=== PATIENT | male | born 1960 | race Caucasian/White ===

== ENCOUNTER → 2016-05-25 | Outpatient (CLI) | payer BC, MEDICARE, OTHER ==
[~2016-05-25] VITALS: Ht 177.8 cm; Wt 77.6 kg
== END ==
LOC: OPSV 08:59
DX: G35 Multiple sclerosis (principal)
CPT/HCPCS: 96365; J2323; J7050

== ENCOUNTER → 2016-06-12 | Outpatient (CLI) | payer BC, MEDICARE | LOC: LAB 11:24 | DX: Z12.5 Encounter for screening for malignant neoplasm of prostate (principal); R35.0 Frequency of micturition | CPT/HCPCS: 36415; 81001; 84153; 87077; 87086; 87186; G0103 ==

== ENCOUNTER → 2016-06-26 | Outpatient (CLI) | payer BC, MEDICARE, OTHER ==
[~2016-06-26] VITALS: Ht 177.8 cm; Wt 77.6 kg
== END ==
LOC: OPSV 06-22 09:00
DX: G35 Multiple sclerosis (principal)
CPT/HCPCS: 96365; J2323; J7050

== ENCOUNTER → 2016-07-24 | Outpatient (CLI) | payer BC, MEDICARE, OTHER ==
[~2016-07-24] VITALS: Ht 177.8 cm; Wt 78.0 kg
== END ==
LOC: OPSV 09:55
DX: G35 Multiple sclerosis (principal)
CPT/HCPCS: 96365; J2323; J7050

== ENCOUNTER → 2016-08-21 | Outpatient (CLI) | payer BC, MEDICARE, OTHER ==
[2016-08-21 11:03] LABS: HEMOGLOBIN 10.8 gm/dl (14.0-17.5); RED BLOOD COUNT 5.19 M/UL (4.20-5.50); WHITE BLOOD COUNT 8.6 K/UL (4.5-11.0)
== END ==
LOC: OPSV 09:57
PROVIDERS: Urology
DX: G35 Multiple sclerosis (principal); I25.10 Atherosclerotic heart disease of native coronary artery without angina pectoris; E78.5 Hyperlipidemia, unspecified; R31.29 Other microscopic hematuria
CPT/HCPCS: 36415; 80061; 80076; 82565; 85025; 96365; J2323; J7050

== ENCOUNTER → 2016-08-28 | Outpatient (CLI) | payer BC, MEDICARE | LOC: MRI 12:27 | DX: G35 Multiple sclerosis (principal); M47.812 Spondylosis without myelopathy or radiculopathy, cervical region | CPT/HCPCS: 70553; 72156; A9577 ==

== ENCOUNTER → 2020-07-12 | Outpatient (CLI) | payer BC, MEDICARE ==
[~2020-07-12] MED LIST: AMPYRA10 MG PO; ASPIR-LOW81 MG PO; CIPRO500 MG PO; CYMBALTA60 MG PO; ECOTRIN81 MG PO; ELIQUIS 2.5 MG2.5 MG PO; LINZESS290 MCG PO; LIORESAL TAB 1010 MG PO; LIPITOR TAB 2020 MG PO; LOPRESSOR 25 MG25 MG PO; LORTAB 7.5-3251 EACH PO; MYRBETRIQ50 MG PO; NATALIZUMAB IV; NIACIN ER500 MG PO; NITROGLYCERIN0.4 MG SL; RANEXA1000 MG PO; RANEXA500 MG PO; SENNA8.6 MG PO; SERTRALINE HCL100 MG PO; TOPROL XL25 MG PO; TYLENOL W/CODEIN1 E1 PO; VITAMIN C 500500 MG PO; VITAMIN D35000 UNI1 PO; ZANTAC150 MG PO; ZOCOR20 MG PO; ZOLOFT100 MG PO
== END ==
LOC: RAD 16:51
DX: M25.561 Pain in right knee (principal); M25.571 Pain in right ankle and joints of right foot
CPT/HCPCS: 73562; 73610; 73630

== ENCOUNTER → 2020-10-07 | Outpatient (CLI) | payer BC, MEDICARE | LOC: KOH-I 12:00 | DX: M25.551 Pain in right hip (principal); M25.571 Pain in right ankle and joints of right foot; M19.071 Primary osteoarthritis, right ankle and foot | CPT/HCPCS: 72192; 73700 ==

== ENCOUNTER 2020-11-20 12:59 | Emergency (ER) | payer BC, MEDICARE ==
[2020-11-20 14:19] LABS: HEMOGLOBIN 7.2 gm/dl (14.0-17.5); RED BLOOD COUNT 3.72 M/UL (4.20-5.50); WHITE BLOOD COUNT 6.1 K/UL (4.5-11.0)
== END 2020-11-20 18:16 | disposition home or self-care (01) ==
LOC: ER1 12:59
PROVIDERS: Family Medicine
DX: Z23 Encounter for immunization (principal); U07.1 COVID-19; E78.5 Hyperlipidemia, unspecified; K21.9 Gastro-esophageal reflux disease without esophagitis; I25.10 Atherosclerotic heart disease of native coronary artery without angina pectoris; Z95.1 Presence of aortocoronary bypass graft; Z93.3 Colostomy status
CPT/HCPCS: 71045; 80053; 83615; 85025; 99285; M0243

== ENCOUNTER → 2021-01-06 | Outpatient (CLI) | payer BC, MEDICARE ==
[2021-01-06 12:51] LABS: RED BLOOD COUNT 4.04 M/UL (4.20-5.50)
[2021-01-06 13:14] LABS: BUN/CREATININE RATIO 19 (0-10)
[2021-01-06 14:00] LABS: HEMOGLOBIN 6.8 gm/dl (14.0-17.5)
== END ==
LOC: LAB 10:59 → KOH-I 10:59
PROVIDERS: Psychiatry & Neurology Neurology
DX: G35 Multiple sclerosis (principal); M54.16 Radiculopathy, lumbar region; R53.83 Other fatigue; M21.371 Foot drop, right foot; M21.372 Foot drop, left foot; M79.89 Other specified soft tissue disorders; F43.23 Adjustment disorder with mixed anxiety and depressed mood; S89.92XA Unspecified injury of left lower leg, initial encounter; N13.30 Unspecified hydronephrosis; M51.17 Intervertebral disc disorders with radiculopathy, lumbosacral region; M25.78 Osteophyte, vertebrae
CPT/HCPCS: 36415; 72148; 80053; 82607; 82746; 85025

== ENCOUNTER 2021-01-19 11:28 | Outpatient (CLI) | payer BC, MEDICARE ==
[2021-01-19 12:25] LABS: HEMOGLOBIN 6.9 gm/dl (14.0-17.5)
[2021-01-23] MEDS ORDERED: LINZESS72 MCG PO (07:46)
[2021-01-23] MEDS ORDERED: PROTONIX40 MG PO ×2 (07:49→09:19)
[2021-01-23] MEDS ORDERED: VITAMIN D31250 MCG PO (07:57)
== END 2021-01-19 19:23 | disposition home or self-care (01) ==
LOC: OPSV 11:28 → M/S 17:00 → OPSV 19:23
PROVIDERS: Nurse Practitioner Family
DX: D64.9 Anemia, unspecified (principal)
CPT/HCPCS: 36415; 36430; 85014; 85018; 86850; 86900; 86901; 86920; J7050; P9016

== ENCOUNTER → 2021-01-23 | Day surgery (SDC) | payer BC, MEDICARE ==
[~2021-01-23] MED LIST changes: +LINZESS72 MCG PO; +PROTONIX40 MG PO; +VITAMIN D31250 MCG PO
== END | disposition home or self-care (01) ==
LOC: OR 07:00
DX: K31.9 Disease of stomach and duodenum, unspecified (principal); K29.70 Gastritis, unspecified, without bleeding; D64.9 Anemia, unspecified; K64.4 Residual hemorrhoidal skin tags; I25.10 Atherosclerotic heart disease of native coronary artery without angina pectoris; N40.0 Benign prostatic hyperplasia without lower urinary tract symptoms; E78.5 Hyperlipidemia, unspecified; I73.9 Peripheral vascular disease, unspecified; G35 Multiple sclerosis; K21.9 Gastro-esophageal reflux disease without esophagitis; Z86.010 Personal history of colon polyps; Z87.891 Personal history of nicotine dependence; Z95.1 Presence of aortocoronary bypass graft; Z88.8 Allergy status to other drugs, medicaments and biological substances; Z79.82 Long term (current) use of aspirin; Z79.899 Other long term (current) drug therapy; Z20.822 Contact with and (suspected) exposure to COVID-19; Z90.49 Acquired absence of other specified parts of digestive tract
CPT/HCPCS: J2704; J7120

== ENCOUNTER → 2021-04-07 | Outpatient (CLI) | payer BC, MEDICARE | LOC: WCC 07:16 | DX: L97.519 Non-pressure chronic ulcer of other part of right foot with unspecified severity (principal); Z87.891 Personal history of nicotine dependence; I10 Essential (primary) hypertension; I25.10 Atherosclerotic heart disease of native coronary artery without angina pectoris; G35 Multiple sclerosis ==

== ENCOUNTER → 2021-04-14 | Outpatient (CLI) | payer BC, MEDICARE | LOC: WCC 07:12 | DX: L97.519 Non-pressure chronic ulcer of other part of right foot with unspecified severity (principal); I10 Essential (primary) hypertension; I25.10 Atherosclerotic heart disease of native coronary artery without angina pectoris; G35 Multiple sclerosis; R60.9 Edema, unspecified ==

== ENCOUNTER → 2021-04-28 | Outpatient (CLI) | payer BC, MEDICARE | END | disposition home or self-care (01) | LOC: WCC 07:14 | DX: L97.519 Non-pressure chronic ulcer of other part of right foot with unspecified severity (principal); I10 Essential (primary) hypertension; I25.10 Atherosclerotic heart disease of native coronary artery without angina pectoris; R60.0 Localized edema; G35 Multiple sclerosis; Z79.1 Long term (current) use of non-steroidal anti-inflammatories (NSAID); Z79.891 Long term (current) use of opiate analgesic ==

== ENCOUNTER → 2021-05-22 | Outpatient (CLI) | payer BC, MEDICARE | END | disposition home or self-care (01) | LOC: WCC 08:13 | DX: L97.512 Non-pressure chronic ulcer of other part of right foot with fat layer exposed (principal); I10 Essential (primary) hypertension; I25.10 Atherosclerotic heart disease of native coronary artery without angina pectoris; G35 Multiple sclerosis; R60.0 Localized edema; Z79.891 Long term (current) use of opiate analgesic ==

== ENCOUNTER → 2021-05-23 | Outpatient (CLI) | payer BC, MEDICARE ==
[2021-05-23 14:02] LABS: HEMOGLOBIN 7.1 gm/dl (14.0-17.5)
== END ==
LOC: LAB 12:25 → OPSV 12:25
PROVIDERS: Nurse Practitioner Family
DX: D56.9 Thalassemia, unspecified (principal); D64.9 Anemia, unspecified
CPT/HCPCS: 36430; 85014; 85018; 86850; 86900; 86901; 86920; J7050; P9016

== ENCOUNTER → 2021-05-24 | Outpatient (CLI) | payer BC, MEDICARE | LOC: OPSV 10:53 | DX: D56.9 Thalassemia, unspecified (principal) | CPT/HCPCS: 36430; J7050; P9016 ==

== ENCOUNTER 2021-06-04 19:05 | Emergency (ER) | payer BC, MEDICARE ==
[2021-06-04 19:56] LABS: HEMOGLOBIN 9.5 gm/dl (14.0-17.5); RED BLOOD COUNT 4.88 M/UL (4.20-5.50); WHITE BLOOD COUNT 10.9 K/UL (4.5-11.0)
== END 2021-06-05 00:06 | disposition home or self-care (01) ==
LOC: ER1 19:05
PROVIDERS: Family Medicine
DX: R55 Syncope and collapse (principal)
CPT/HCPCS: 70450; 71045; 80053; 81001; 82550; 82553; 84484; 85025; 93005; 99285

== ENCOUNTER → 2021-06-28 | Outpatient (CLI) | payer BC, MEDICARE | LOC: WCC 07:40 | DX: S91.204D Unspecified open wound of right lesser toe(s) with damage to nail, subsequent encounter (principal); R60.0 Localized edema; I10 Essential (primary) hypertension; I25.10 Atherosclerotic heart disease of native coronary artery without angina pectoris; G35 Multiple sclerosis | CPT/HCPCS: G0463 ==

== ENCOUNTER → 2021-10-06 | Outpatient (CLI) | payer BC, MEDICARE ==
[~2021-10-06] VITALS: Ht 177.8 cm; Wt 81.6 kg
== END | disposition home or self-care (01) ==
LOC: OPSV 11:31
DX: N39.0 Urinary tract infection, site not specified (principal)
CPT/HCPCS: 96365; C1751; J0692

== ENCOUNTER → 2021-10-30 | Outpatient (CLI) | payer BC, MEDICARE | LOC: EXRD 15:38 | DX: N13.30 Unspecified hydronephrosis (principal); Z96.0 Presence of urogenital implants | CPT/HCPCS: 74018 ==

== ENCOUNTER → 2021-12-06 | Outpatient (CLI) | payer BC, MEDICARE ==
[~2021-12-06] VITALS: Ht 177.8 cm; Wt 81.6 kg
== END ==
LOC: OPSV 12-05 08:00
DX: N30.20 Other chronic cystitis without hematuria (principal); N39.0 Urinary tract infection, site not specified
CPT/HCPCS: 96365; C1751; J2185